=== PATIENT | male | born 1945 | race Caucasian/White ===

== ENCOUNTER 2017-03-01 09:23 | Day surgery (SDC) | payer OTHER ==
[2017-02-24 16:08] VITALS: BMI 29.0
[2017-03-01] MEDS: GENTAMICIN SULFATE 0.3% OPHTHALMIC (EYE DROPS) 5ML BOTTLE ONE ×2 (09:45→10:15)
[2017-03-01] MEDS: CYCLOPENTOLATE HCL 1% OPHTH SOLN 2 ML BOTTLE ONE ×5 (09:55→10:15)
[2017-03-01] MEDS: TROPICAMIDE 1% OPHTH SOLN 15 ML BOTTLE ONE ×5 (09:55→10:15)
[2017-03-01] MEDS: KETOROLAC TROMETHAMINE 0.5% 5 ML BOTTLE OPTHALMIC ONE ×5 (09:55→10:15)
[2017-03-01] MEDS: PHENYLEPHRINE 2.5% OPHTH SOLN 15 ML BOTTLE ONE ×5 (09:55→10:15)
[2017-03-01 09:57] VITALS: TEMP 98.1
[2017-03-01] MEDS ORDERED: ACETAMINOPHEN 325 MG TABLET (FP) PO PRN ×2 (11:09→13:49)
[2017-03-01] MEDS ORDERED: LIDOCAINE HCL/PF 2% SDV 5ML VIAL ONE (11:12)
[2017-03-01] MEDS ORDERED: BUPIVACAINE HCL/PF 0.5% (5MG/ML) 10 ML VIAL ONE (11:12)
[2017-03-01] MEDS ORDERED: LIDOCAINE HCL 2% JELLY 10 ML CARTRIDGE ONE (11:12)
[2017-03-01] MEDS ORDERED: ACETYLCHOLINE 1:100 INTRA-OCUL 20 MG/2 ML KIT ONE (11:12)
[2017-03-01 13:14] VITALS: BP 144/89; PULSE 66
[2017-03-01] MEDS ORDERED: ONDANSETRON 4 MG/2 ML VIAL IVPUSH PRN (13:49)
[2017-03-01] MEDS ORDERED: LACTATED RINGERS SOLUTION 1,000 ML IV SCH (14:00)
--- NOTE | 2017-03-01 14:45 | OP ---
DATE OF OPERATION: 03/01/2017 TITLE OF THE PROCEDURE: Planned extracapsular cataract extraction, phacoemulsification, insertion of posterior chamber lens implant in the right eye. SURGEON: Gal Wyatt MD PRINTING AGENT SURGEON: Gal Wyatt MD COMPLICATIONS: None. PREOPERATIVE DIAGNOSIS: Hypermature cataract, right eye. POSTOPERATIVE DIAGNOSIS: Hypermature cataract, right eye. ANESTHESIOLOGIST: Luke Tejeda MD NURSE DIESEL DINKEY OPERATOR: Sorin FINDINGS AND PROCEDURE: After successful peribulbar anesthesia was given, the patient was prepped and draped in the usual manner to expose the right eye. Tegaderm strips and the lid speculum were inserted, and the microscope was brought in position over the eye. Superior fornix based flap was then fashioned for 12 mm using Rusty scissors and 0.12 forceps and hemostasis with electrocautery. Limbal groove was then fashioned for 3 mm with the crescent blade and dissecting anterior into clear cornea. The 3 mm blade was used to enter the anterior chamber and under Viscoat 360 degree anterior capsulotomy was performed and the leaflet removed from the eye. Phacoemulsification on this very hard 4+ hypermature nucleus was done in approximately 2-1/2 minutes' time, followed by irrigation and aspiration of all cortical material and with an intact posterior capsular and red reflex present. Provisc was injected to deepen the posterior chamber and then attention was focused in the implant, which was inspected and found to be free of defects. This was folded, placed in the Provisc-filled cartridge, the cartridge placed in the injector and the implant was injected into the eye such that inferior haptic was in the inferior capsular bag and the superior haptic in the superior capsular bag and rotated in the horizontal position with the Sinskey hook. The Provisc was aspirated out and replaced with Miochol, Myostatin, BSS and the wound was closed with a single interrupted 2-0 Ethilon suture and assessed for leakage and none was found, and the conjunctival tenon flap reapproximated. At this point, the implant was fixated and the capsular bag centrally located with a round pupil, intact posterior capsule and red reflex present. Topical betoptic acid and Maxitrol ophthalmic suspensions were placed as was bacitracin ophthalmic ointment and then the Tegaderm strips and lid speculum removed from the lids. The lids were closed and the patch and shield placed on the eye. Patient was then discharged from the operating room to the recovery area in good condition having tolerated the procedure well. Aashish VIDAL/[id number]
== END 2017-03-01 13:15 | disposition home or self-care (01) ==
LOC: FASU 09:23
PROVIDERS: ATTEND Ophthalmology
PROC: 08RJ3JZ Replacement of Right Lens with Synthetic Substitute, Percutaneous Approach (ICD-10-PCS; principal; 2017-03-01 11:42)
DX: H25.21 Age-related cataract, morgagnian type, right eye (principal)